=== PATIENT | female | born 1980 | race Caucasian/White ===

== ENCOUNTER 2021-03-10 13:09 | Emergency (ER) | payer MEDICAID ==
[~2021-03-10] VITALS: Ht 165.1 cm; Wt 78.1 kg
--- NOTE | 2021-03-10 14:18 | RAD ---
XR FINGER(S)_LEFT 2+VIEWS_RT History: Cut finger with hedge clippers. During fourth digit. Comparison: None. Technique: AP left hand. 2 coned-down views of the third and fourth fingers. Findings: Osseous mineralization is normal. No fracture or dislocaton. No significant degerative changes. Castellanos ge material over the middle finger tip. Soft tissue defect at the middle and fourth fingertips. No ra diopaque foreign body. No subcutaneous emphysema. Impression: 1. Osseous abnormality of the third and fourth fingers. No radiopaque foreign body. Electronically signed by: Shamar Muhammad MD (03/10/2021 2:16 PM) [id number]
[2021-03-10] MEDS: DIPH,PERTUSS(ACELL),TET VAC/PF 0.5 ML SYRINGE. VAX IM ONE (14:27)
[2021-03-10] MEDS ORDERED: LIDOCAINE 1% Multi-Dose 20 ML VIAL. ONE (14:30)
[2021-03-10] MEDS: LIDOCAINE 1% Multi-Dose 20 ML VIAL. IJ ONE (14:39)
--- NOTE | 2021-03-10 15:23 | PHYS DOC ---
Past History Past Surgical History: No Surgical History General Adult EDM: Chief Complaint: FINGER INJURY HPI: HPI: Patient is a 40-year-old female who presents to the ER today for a laceration to her left hand after cutting them with hedge tremors. Patient reports that it was wet outside she was trying to reach with the hedge tremors to tie a carroll when it slipped and cut her left hand. Patient has lacerations to her left third and fourth fingers. She rates her pain 10 out of 10, does not radiate, no treatment prior to arrival, worse with movement. Patient is unsure when her last tetanus shot was. Patient denies any difficulty moving fingers or any numbness or tingling in her hands. Review of Systems: Review of Systems: 14 body systems of the review of systems have been reviewed. See HPI for pertinent positive and negative responses, otherwise all other systems are negative, nonpertinent or noncontributory Current Medications: Current Meds: Current Medications Medications (Trade) Dose Ordered Sig/Rose Marie Start Time Stop Time Status Last Admin Dose Admin Diphtheria/ Pertussis/Tetanus Vacc (ADACEL TDap SYRINGE) 0.5 ml ONCE ONCE 03/10/21 13:45 03/10/21 13:46 DC 03/10/21 14:27 0.5 ML Lidocaine HCl 20 ml 1X ONCE 03/10/21 14:45 03/10/21 14:46 DC 03/10/21 14:39 20 ML Allergies: Allergies: Allergies Coded Allergies Type Severity Reaction Last Updated Verified No Known Drug Allergies 03/10/21 No Physical Exam: PE: Constitutional: Well developed, well nourished, no acute distress, non-toxic appearance. [] HENT: Normocephalic, atraumatic Eyes: PERRL Neck: Normal range of motion, no stridor Cardiovascular: Normal peripheral perfusion Lungs & Thorax: Normal work of breathing, no tachypnea Skin: Warm, dry, no erythema, no rash. Patient has a 1 cm laceration to he tip of her left third finger it is actively bleeding. Patient has small avulsion to left third finger proximal to laceration and small avulsion to left third finger, these wounds are nonsuturable. [] Extremities: No tenderness, no cyanosis, no clubbing, ROM intact, no edema. Left third and fourth finger: Good range of motion, neurologically intact, sensation intact.[] Neurologic: Alert and oriented X 3, normal motor function, normal sensory function, no focal deficits noted. [] Psychologic: Affect normal, judgement normal, mood normal. [] Current Patient Data: Vital Signs: Vital Signs Date Time Temp Pulse Resp B/P (MAP) Pulse Ox O2 Delivery O2 Flow Rate FiO2 03/10/21 13:20 98.7 112 18 152/87 99 Room Air EKG: EKG: [] Radiology/Procedures: Radiology/Procedures: PROCEDURE: FINGER(S) LEFT XR FINGER(S)_LEFT 2+VIEWS_RT History: Cut finger with hedge clippers. During fourth digit. Comparison: None. Technique: AP left hand. 2 coned-down views of the third and fourth fingers. Findings: Osseous mineralization is normal. No fracture or dislocaton. No significant degerative changes. Bandage material over the middle finger tip. Soft tissue defect at the middle and fourth fingertips. No radiopaque foreign body. No subcutaneous emphysema. Impression: 1. Osseous abnormality of the third and fourth fingers. No radiopaque foreign body. Electronically signed by: Shamar Muhammad MD (03/10/2021 2:16 PM) [id number] DICTATED AND SIGNED BY: SHAMAR MUHAMMAD MD DATE: 03/10/21 1415 CC: SAI CHRISTENSEN APRN; PCP,NO ~MTH0 0 [] Heart Score: C/O Chest Pain: No Risk Factors: Risk Factors: DM, Current or recent (<one month) smoker, HTN, HLP, family history of CAD, obesity. Risk Scores: Score 0 - 3: 2.5% MACE over next 6 weeks - Discharge Home Score 4 - 6: 20.3% MACE over next 6 weeks - Admit for Clinical Observation Score 7 - 10: 72.7% MACE over next 6 weeks - Early Invasive Strategies Course & Med Decision Making: Course & Med Decision Making Pertinent Labs and Imaging studies reviewed. (See chart for details) Patient is a 40-year-old female coming to the ER today for a laceration to her left third and fourth finger. X-ray of the fingers are negative for any acute fracture. The wounds were cleansed with warm water, soap, chlorhexidine. The laceration was repaired with 4 sutures and dressing were placed to the left third and fourth finger. Tetanus vaccine administered. Patient educated on wound care and agreeable. Geoffrey Disclaimer: Geoffrey Disclaimer: This electronic medical record was generated, in whole or in part, using a voice recognition dictation system. Departure Departure: Impression: Primary Impression: Laceration of finger of left hand Qualified Codes: S61.213A - Laceration without foreign body of left middle finger without damage to nail, initial encounter Disposition: HOME / SELF CARE / HOMELESS Condition: GOOD Referrals: PCP,NO (PCP) Patient Instructions: Laceration Care, Adult Additional Instructions: Thank you for choosing [facility] and allowing me to participate in your care. As we have discussed, your findings did not indicate a fracture. As we have discussed, the treatment includes Tylenol or ibuprofen for pain, ice, application of Polysporin and dressing. You need to return to the ER or follow-up with your primary care doctor in approximately 7 to 10 days to get your sutures removed. Please monitor for any signs of infection including redness, warmth, swelling, and drainage. Please keep your wounds clean and keep them dry do not submerge your hands in any water. please follow up with your primary care provider tomorrow regarding your ER visit. If your symptoms worsen or you develop any of the signs of infection, increased pain, swelling, inability to move finger, fevers, please return. EMERGENCY DEPARTMENT GENERAL DISCHARGE INSTRUCTIONS Thank you for coming to [facility] (ED) today and trusting us with you care. We trust that you had a positivie experience in our Emergency Department. If you wish to speak to the department management, you may call the director at [phone]. YOUR FOLLOW UP INSTRUCTIONS ARE FOLLOWS: 1. Do you have a private Doctor? If you do not have a private doctor, please ask for a resource list of physicians or clinics that may be able to assist you with follow up care. 2. The Emergency Physician has interpreted your x-rays. The X-Ray specialist will also review them. If there is a change in the findings, you will be notified in 48 hours when at all possible. 3. A lab test or culture has been done, your results will be reviewed and you will be notified if you need a change in treatment. ADDITIONAL INSTRUCTIONS AND INFORMATION: 1. Your care today has been supervised by a physician who is specially trained in emergency care. Many problems require more than one evaluation for a complete diagnosis and treatment. We recommend that you schedule your follow up appointment as recommended to ensure complete treatment of you illness or injury. If you are unable to obtain follow up care and continue to have a problem, or if your condition worsens, we recommend that you return to the ED. 2. We are not able to safely determine your condition over the phone nor are we able to give sound medical advice over the phone. For these safety reasons, if you call for medical advice we will ask you to come to the ED for further evaluation. 3. If you have any questions regarding these discharge instructions please call the ED at [phone]. SAFETY INFORMATION: In the interest of safety, wellness, and injury prevention; we encourage you to wear your sealbelt, if you smoke; quite smoking, and we encourage family to use a protective helmet for bicycling and other sporting events that present an increased risk for head injury. IF YOUR SYMPTOMS WORSEN OR NEW SYMPTOMS DEVELOP, OR YOU HAVE CONCERNS ABOUT YOUR CONDITION; OR IF YOUR CONDITION WORSENS WHILE YOU ARE WAITING FOR YOUR FOLLOW UP APPOINTMENT; EITHER CONTACT YOUR PRIMARY CARE DOCTOR, THE PHYSICIAN WHOSE NAME AND NUMBER YOU WERE GIVEN, OR RETURN TO THE ED IMMEDIATELY. Laceration Repair Lac Repair Indication: Laceration to left third finger Procedure: The patient was placed in the appropriate position and anesthesia around the left third finger, 1% lidocaine. The area was then cleansed with chlorhexidine. The laceration was sutured with 5.0 Ethilon the wound area was then dressed with nonadherent dressing and Coban Total repaired wound length: 1 cm, 4 sutures placed The patient tolerated the procedure Complications: None SAI CHRISTENSEN APRN Mar 10, 2021 15:22
[2021-03-10 15:51] VITALS: BP 148/76
== END 2021-03-10 15:52 | disposition home or self-care (01) ==
LOC: ER 13:09
DX: S61.412A Laceration without foreign body of left hand, initial encounter (principal); Z23 Encounter for immunization; W26.8XXA Contact with other sharp object(s), not elsewhere classified, initial encounter; Y93.89 Activity, other specified; Y92.89 Other specified places as the place of occurrence of the external cause; Y99.8 Other external cause status
CPT/HCPCS: 12001; 73140; 90471; 90715; 99283-25

== ENCOUNTER → 2021-09-27 | Outpatient (CLI) | payer MEDICAID ==
--- NOTE | 2021-09-27 13:36 | RAD ---
XR HIP_LT 2-3 VIEWS History: Reason: HIP PAIN / Spl. Instructions: / History: Technique: 2 views left hip Comparison: None. Findings: No dislocation. No acute fracture. IUD projecting over the pelvis. Impression: 1. No acute osseous abnormality. Electronically signed by: Deepak Wan DO (09/27/2021 1:34 PM) [id number]
== END ==
LOC: RAD 10:45
PROVIDERS: ATTEND Family Medicine
DX: M25.552 Pain in left hip (principal)
CPT/HCPCS: 73502